=== PATIENT | male | born 1980 | race Caucasian/White ===

== ENCOUNTER 2016-08-25 20:14 | Emergency (ER) | payer OTHER ==
[2016-08-25 20:50] VITALS: BP 142/79; PULSE 80; TEMP 98.2; BMI 28.5
[2016-08-25] MEDS ORDERED: IBUPROFEN 600 MG TABLET (FP) PO ONE ×2 (21:26→21:36)
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
[2016-08-25] MEDS ORDERED: OXYCODONE/APAP 5/325MG COMBO TABLET PO ONE (21:45)
[2016-08-25] MEDS ORDERED: OXYCODONE/APAP 5/325MG COMBO TABLET ONE (21:46)
== END 2016-08-25 22:04 | disposition home or self-care (01) ==
LOC: JERFT 20:14
DX: S46.812A Strain of other muscles, fascia and tendons at shoulder and upper arm level, left arm, initial encounter (principal); X50.0XXA Overexertion from strenuous movement or load, initial encounter; X02.8XXA Other exposure to controlled fire in building or structure, initial encounter; Y93.89 Activity, other specified; Y92.89 Other specified places as the place of occurrence of the external cause; Y99.0 Civilian activity done for income or pay
CPT/HCPCS: 99281-25

== ENCOUNTER 2017-11-09 09:29 | Emergency (ER) | payer OTHER ==
[2017-11-09 09:35] VITALS: BP 132/90; PULSE 103; TEMP 97.4; BMI 27.8
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
== END 2017-11-09 10:58 | disposition home or self-care (01) ==
LOC: JERFT 09:29
DX: M79.671 Pain in right foot (principal); W20.8XXA Other cause of strike by thrown, projected or falling object, initial encounter; Y93.89 Activity, other specified; Y92.9 Unspecified place or not applicable; Y99.0 Civilian activity done for income or pay
CPT/HCPCS: 73610-TC-RT-FY; 73630-TC-RT-FY; 99281-25

== ENCOUNTER 2021-04-24 19:24 | Emergency (ER) | payer OTHER ==
[2021-04-24 19:52] VITALS: BMI 26.4
[2021-04-24] MEDS ORDERED: KETOROLAC TROMETHAMINE 30 MG/1 ML VIAL IM ONE (20:13)
[2021-04-24] MEDS ORDERED: KETOROLAC TROMETHAMINE 30 MG/1 ML VIAL ONE (20:34)
[2021-04-24 21:06] VITALS: BP 135/71; PULSE 73; TEMP 98.6
== END 2021-04-24 21:06 | disposition home or self-care (01) ==
LOC: JER 19:24
PROC: 3E0233Z Introduction of Anti-inflammatory into Muscle, Percutaneous Approach (ICD-10-PCS; principal; 2021-04-24)
DX: R52 Pain, unspecified (principal)
CPT/HCPCS: 73564-TC-RT-FY; 99284-25

== ENCOUNTER 2022-10-06 06:55 | Day surgery (SDC) | payer OTHER ==
[2022-10-04 12:19] VITALS: BMI 25.7
[2022-10-06] MEDS ORDERED: BUPIVACAINE HCL/PF 0.25% (2.5MG/ML) 10 ML VIAL ONE (07:22)
[2022-10-06] MEDS ORDERED: PROPOFOL 20 ML ONE (07:37)
[2022-10-06] MEDS ORDERED: MIDAZOLAM HCL 2 MG/2 ML SINGLE DOSE VIAL ONE ×2 (07:38→07:52)
[2022-10-06] MEDS ORDERED: SUCCINYLCHOLINE CHLORIDE 200 MG/10 ML SYRINGE ONE (07:52)
[2022-10-06] MEDS ORDERED: ONDANSETRON 4 MG/2 ML VIAL ONE (08:12)
[2022-10-06] MEDS ORDERED: DEXAMETHASONE SOD PHOSPHATE 4 MG/1 ML VIAL ONE (08:12)
[2022-10-06] MEDS ORDERED: ceFAZolin SODIUM 1 GM VIAL ONE (08:13)
[2022-10-06] MEDS ORDERED: KETOROLAC TROMETHAMINE 30 MG/1 ML VIAL ONE (08:18)
[2022-10-06] MEDS ORDERED: ONDANSETRON 4 MG/2 ML VIAL IVPUSH PRN (09:07)
[2022-10-06] MEDS ORDERED: oxyCODONE HCL 5 MG TABLET PO PRN (09:07)
[2022-10-06] MEDS ORDERED: LACTATED RINGERS SOLUTION 1,000 ML IV SCH (09:15)
[2022-10-06] MEDS ORDERED: oxyCODONE HCL 5 MG TABLET PO ONE (10:15)
[2022-10-06 10:16] VITALS: RESP 16; TEMP 97.8
[2022-10-06] MEDS ORDERED: oxyCODONE HCL 5 MG TABLET ONE (10:18)
[2022-10-06 10:41] VITALS: BP 115/78; PULSE 80
== END 2022-10-06 11:12 | disposition home or self-care (01) ==
LOC: FASUSAT 06:55
PROVIDERS: ATTEND Orthopaedic Surgery Sports Medicine
PROC: 0SBC4ZZ Excision of Right Knee Joint, Percutaneous Endoscopic Approach (ICD-10-PCS; principal; 2022-10-06 08:29)
PROC: 0SBC4ZZ Excision of Right Knee Joint, Percutaneous Endoscopic Approach (ICD-10-PCS; 2022-10-06 08:29)
DX: S83.241A Other tear of medial meniscus, current injury, right knee, initial encounter (principal); S83.281A Other tear of lateral meniscus, current injury, right knee, initial encounter; M65.861 Other synovitis and tenosynovitis, right lower leg; X58.XXXA Exposure to other specified factors, initial encounter; Y93.9 Activity, unspecified; Y92.9 Unspecified place or not applicable
CPT/HCPCS: 94760